=== PATIENT | male | born 1955 | race Two or more races ===

== ENCOUNTER 2020-05-02 08:09 | Outpatient (CLI) | payer OTHER | END 2020-05-02 08:21 | disposition home or self-care (01) | LOC: SONOGRAMA 08:09 → MAMO-SONO 08:15 → SONOGRAMA 08:21 | PROVIDERS: ATTEND Specialist | DX: N40.3 Nodular prostate with lower urinary tract symptoms (principal); R97.20 Elevated prostate specific antigen [PSA] ==